=== PATIENT | female | born 1940 | race Caucasian/White ===

== ENCOUNTER 2017-09-20 17:10 | Emergency (ER) | payer OTHER ==
[~2017-09-20] VITALS: Ht 157.5 cm; Wt 74.8 kg
[~2017-09-20 17:10] MED LIST: ASPIR 8181 MG PO; AUGMENTIN 875 M1 TAB PO; LACTULOSE10 GM/15 M PO; MACRODANTIN 50M50 MG PO; MASON NATURAL2000 IU PO; MIRALAX17 GM PO; MULTIVITAMIN1 TAB PO; NORVASC 10MG10 MG PO; OXYCODONE HCL10 MG PO; OXYCONTIN (MONO40 MG PO; PROAIR HFA8.5 GM INH; TAMBOCOR100 MG PO; TOPROL XL25 MG PO; VITAB121000 PO; VITAMIN C1000 M1 PO; VYTORIN 10 MG-11 TAB PO; XANAX0.25 MG PO; ZOFRAN4 M1 PO
--- NOTE | 2017-09-20 20:19 | ED GI/GU/ABDOMINAL COMPLAINT ---
History of Present Illness General Chief Complaint: Abdominal Pain/Flank Pain Stated Complaint: ABD PAIN Source: patient Exam Limitations: no limitations Vital Signs & Intake/Output Vital Signs & Intake/Output Vital Signs Date Time Temp Pulse Resp B/P B/P Pulse O2 O2 Flow FiO2 Mean Ox Delivery Rate 09/209 98.5 80 19 142/70 99 Room Air 09/20 1925 97.5 82 19 158/62 99 Room Air 09/20 1726 97.7 86 18 161/69 97 Room Air Allergies Coded Allergies: NO KNOWN ALLERGIES (11/29/14) Reconcile Medications Albuterol Sulfate (Proair Hfa) 8.5 GM HFA.AER.AD 2 INH INH Q6P PRN WHEEZING Alprazolam (Xanax) 0.25 MG TABLET 1 TAB PO TIDPRN PRN ANXIETY (Reported) Amlodipine (Norvasc 10MG) 10 MG TABLET 1 TAB PO DAILY HYPERTENSION (Reported) AMOXICILLIN/POTASSIUM CLAV (Augmentin 875-125 Tablet) 875 MG/125 MG TAB 1 TAB PO BID INFECTION FOR 7 DAYS (Reported) Ascorbic Acid (Vitamin C) 1,000 MG TAB 1 TAB PO DAILY SUPPLEMENT (Reported) Aspirin (Ecotrin) 81 MG TABLET.DR 1 TAB PO DAILY HEART HEALTH (Reported) CHOLECALCIFEROL (VITAMIN D3) (Vitamin D) 2,000 UNIT CAPSULE 1 CAP PO DAILY SUPPLEMENT (Reported) Cyanocobalamin (Vitamin B-12) 1,000 MCG TABLET 1 TAB PO DAILY SUPPLEMENT ( Reported) Ezetimibe/Simvastatin (Vytorin 10-10 MG Tablet) 10 MG-10 MG TABLET 1 TAB PO DAILY HYPERLIPIDEMIA (Reported) Flecainide Acetate (Tambocor) 100 MG TAB 1 TAB PO BID CARDIAC HEALTH ( Reported) Lactulose 10 GRAM/15 ML SOLUTION 30 ML PO 4 TIMES/DAY PRN CONSTIPATION ( Reported) Metoprolol Succinate (Toprol XL) [address] 0[address]5 TAB PO DAILY HYPERTENSION ( Reported) Multivitamin (Multiple Vitamins) 1 EACH TABLET 1 TAB PO DAILY SUPPLEMENT ( Reported) Nitrofurantoin (Macrodantin 50MG Cap) 50 MG CAPSULE 1 CAP PO DAILY CHRONIC CYSTITIS (Reported) Ondansetron (Zofran Odt) 4 MG TAB.RAPDIS 1 TAB PO Q4-6 PRN NAUSEA Oxycodone HCL (Oxycontin (Monograph Only)) 40 MG TAB.ER.12H 1 TAB PO BID PAIN (Reported) OXYCODONE HCL (Oxycodone HCl) 10 MG TABLET 1 TAB PO Q4-6H PRN PAIN (Reported) Polyethylene Glycol 3350 (Miralax) 17 GRAM/DOSE POWDER 17 GM PO DAILY PRN CONSTIPATION (Reported) mix with water, juice, soda, coffee or tea Triage Note: PT STATES SHE IS GETTING STOMACH PAIN. PT STATES SHE HAD SURGERY AT HER ABD FOR PERFED DUODONEL ULCER. PT DENIES N/V/D. PT STATES THE PAIN "FEELS LIKE GAS" ON AND OFF SINCE LAST TUESDAY Triage Nurses Notes Reviewed? yes ? N Is pt currently ? No Onset: Gradual Duration: day(s):, continues in ED, getting worse Quality/Severity: cramping, sharpness, GASSY HPI: Patient presents for evaluation of a gassy cramping abdominal pain that began . Patient states symptoms have been more or less constant but fluctuating in intensity. Past History Travel History Traveled to [place] past 21 day No Medical History Any Pertinent Medical History? 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 No Review of Systems Review of Systems Constitutional: Reports: no symptoms. EENTM: Reports: no symptoms. Respiratory: Reports: no symptoms. Cardiovascular: Reports: no symptoms. GI: Reports: no symptoms. Genitourinary: Reports: no symptoms. Musculoskeletal: Reports: no symptoms. Skin: Reports: no symptoms. Neurological/Psychological: Reports: no symptoms. Hematologic/Endocrine: Reports: no symptoms. Immunologic/Allergic: Reports: no symptoms. All Other Systems: Reviewed and Negative Physical Exam Physical Exam Gastrointestinal: SEE BELOW Comments: Gen.: Well-nourished, well-developed, no acute respiratory distress. Head: Normocephalic, atraumatic. Eyes: Normal inspection bilaterally Ears: Normal inspection bilaterally Nose: Normal inspection Throat/mouth : Moist mucosa Neck: Supple, full range of motion, no goiter Heart: Regular rate and rhythm, no murmurs rubs or gallops Lungs: Clear to auscultation bilaterally with normal air entry Chest: Nontender Back: Normal range of motion Abdomen: Soft, diffuse tenderness with brief voluntary guarding but no rebound, nondistended, normal bowel sounds Extremities: Normal range of motion grossly, equal radial pulses, no cyanosis clubbing or edema Neurologic: Cranial nerves grossly intact, speech is clear Skin: warm and dry Psychiatric: Calm, cooperative, no apparent delusions or hallucinations Rectal: Minimal stool in vault, heme negative, no palpable masses Core Measures ACS in differential dx? No Sepsis Present: No Sepsis Focused Exam Completed? No Progress Differential Diagnosis: bowel obstruction, diverticulitis, gastritis, ischemic bowel, inflamm bowel dis, pancreatitis, peptic ulcer, bowel obstruction, diverticulitis, constipation, obstipation, fecal impaction, Stercocolitis Plan of Care: Orders Procedure Date/time Status URINALYSIS 09/20 2023 Complete LIPASE 09/20 2023 Complete COMPREHENSIVE METABOLIC PANEL 09/20 2023 Complete CBC WITHOUT DIFFERENTIAL 09/20 2023 Complete Laboratory Tests 09/20/172049: Urine Color YEL, Urine Clarity CLEAR, Urine pH 6.0, Ur Specific [place] 1.015, Urine Protein NEG, Urine Ketones NEG, Urine Nitrite NEG, Urine Bilirubin NEG, Urine Urobilinogen 0.2, Ur Leukocyte Esterase TRACE H, Ur Microscopic SEDIMENT EXAMINED, Urine RBC RARE, Urine WBC 1-3 H, Ur Epithelial Cells RARE, Urine Bacteria FEW H, Urine Mucus RARE, Urine Hemoglobin NEG, Urine Glucose NEG 09/20/172044: Anion Gap 14, Estimated GFR > 60, BUN/Creatinine Ratio 35.0 H, Glucose 94, Calcium 9.7, Total Bilirubin 0.2, AST 28, ALT 49, Alkaline Phosphatase 86, Total Protein 7.6, Albumin 4.1, Globulin 3.5, Albumin/Globulin Ratio 1.2, Lipase 33, CBC w Diff NO MAN DIFF REQ, RBC 3.72 L, MCV 80.8 L, MCH 26.2 L, RDW 14.4, MPV 7.7, Gran % 54.7, Lymphocytes % 36.0, Monocytes % 7.6, Eosinophils % 1.5, Basophils % 0.2, Absolute Granulocytes 5.4, Absolute Lymphocytes 3.6 H, Absolute Monocytes 0.7 H, Absolute Eosinophils 0.1, Absolute Basophils 0, PUBS MCHC 32.4 L Diagnostic Imaging: Discussed w/RAD: CT Scan. Radiology Impression: PATIENT: KANG PATHAK PRESENT AGE: 77 PATIENT ACCOUNT NO: [id number] : 38 LOCATION: [facility] ORDERING PHYSICIAN: Edinson Almonte MD SERVICE DATE: 09/20/17 EXAM TYPE: CAT - CT ABD & PELVIS W IV CONTRAST EXAMINATION: CT ABDOMEN AND PELVIS WITH CONTRAST CLINICAL INFORMATION: Prior duodenal ulcer surgery. Abdominal pain and distention. COMPARISON: 11/29/2014 TECHNIQUE: Multidetector volumetric imaging was performed of the abdomen and pelvis following IV administration of 95 mL of Optiray 320 intravenous contrast. Sagittal and coronal reformatted images were obtained on the technologist's workstation. DLP: 396 mGy-cm FINDINGS: LUNG BASES : The visualized lung bases are unremarkable. LIVER, GALLBLADDER, AND BILIARY TREE: Unchanged 1.9 cm cyst in the liver. Again seen is mild to moderate intrahepatic biliary ductal dilatation. The common bile duct is dilated to 1.3 cm. The portal vein enhances normally. Gallbladder moderately distended. No gallbladder wall thickening or pericholecystic fluid. PANCREAS: The pancreas is atrophic. The pancreatic duct is borderline dilated and irregular. No peripancreatic fluid or inflammatory changes. SPLEEN: Normal size. No focal lesion. ADRENAL GLANDS: No adrenal mass. KIDNEYS AND URETERS: Symmetric bilateral renal enhancement. Right upper pole renal cortical cyst. There are extrarenal pelvises bilaterally. No hydronephrosis or mass. BLADDER: Unremarkable. GASTROINTESTINAL TRACT: Stomach is collapsed. Small bowel is nondilated. There is a large volume of stool throughout the tortuous colon. Constipation is possible. No wall thickening to suggest colitis or diverticulitis however. ABDOMINAL WALL: No significant hernia is appreciated. LYMPH NODES: Normal. VASCULAR: Unremarkable. PELVIC VISCERA: The uterus is not seen, either diminutive or absent. OSSEOUS STRUCTURES: Multilevel posterior spinal fusion and laminectomy is seen there is extensive posterior lateral bone graft material. Streak artifact limits evaluation. IMPRESSION: No definite acute abnormality to explain the patient's abdominal pain. No evidence of small bowel obstruction. There is a large volume of stool throughout the tortuous colon. Constipation is possible. No focal evidence of colitis or diverticulitis. The common bile duct is dilated to 1.3 cm with mild to moderate intrahepatic biliary ductal dilatation, similar to prior study. DICTATED BY: Daniel Bailey MD DATE /TIME DICTATED:09/20/172212 AGENT:LORETTA DATE/TIME TRANSCRIBED: 09/20/172212 CONFIDENTIAL, DO NOT COPY WITHOUT APPROPRIATE AUTHORIZATION. < Electronically signed in Other Vendor System> SIGNED BY: Daniel Bailey MD 09/20/172223 Initial ED EKG: none Departure Departure Disposition: HOME OR SELF CARE Condition: Stable Clinical Impression Primary Impression: Constipation Qualifiers: Constipation type: slow transit constipation Qualified Code: K59.01 - Slow transit constipation Referrals: Brittney ANGULO,Mati Lechuga (PCP/Family) Additional Instructions: Maintained a good fluid intake. Try Ex-Lax And magnesium citrate. Follow-up with your primary care physician if no improvement over the next 48-72 hours. Return if any concerns or sudden worsening. Please note that there might be incidental findings in your evaluation that are unrelated to the current emergency department visit. Please notify your primary care doctor about this emergency department visit in order to obtain and review all of the testing performed so that these incidental findings can be monitored as needed. If you had an x-ray performed, please understand that some fractures may not be seen on the initial set of x-rays. If your symptoms persist you might need a repeat set of x-rays to check for such a fracture. If you had a laceration evaluated, please understand that foreign bodies such as glass or wood may not be visible to the naked eye or on plain x-rays. If the wound becomes red, swollen, increasingly more painful or if there is any drainage from the wound, please have it reevaluated by a physician for the possibility of a retained foreign body. If you're unable to follow up as outlined in the discharge instructions please return to the emergency department. Thank you for choosing the [facility] Emergency Department for your care. It was a pleasure to serve you today. Edinson Almonte M.D. [facility] Departure Forms: Customer Survey General Discharge Information
[2017-09-20 21:02] LABS: ABSOLUTE BASOPHIL COUNT 0 /CUMM (0.0-0.2); ABSOLUTE EOSINOPHIL COUNT 0.1 /CUMM (0.0-0.7); ABSOLUTE GRANULOCYTE CT 5.4 /CUMM (1.4-6.5); ABSOLUTE LYMPH COUNT 3.6 /CUMM (1.2-3.4); ABSOLUTE MONOCYTE COUNT 0.7 /CUMM (0.10-0.60); BASOPHIL % 0.2 % (0.0-2.0); EOSINOPHIL % 1.5 % (0-5); GRANULOCYTE % 54.7 % (42.2-75.2); HEMATOCRIT 30.1 % (37-47); MEAN CORPUSCULAR HGB 26.2 PG (27.0-31.0); MEAN CORPUSCULAR HGB CONC 32.4 G/DL (33.0-37.0); MEAN CORPUSCULAR VOLUME 80.8 FL (81.0-99.0); MEAN PLATELET VOLUME 7.7 FL (7.4-10.4); PLATELET COUNT 340 /CUMM (130-400); RBC DISTRIBUTION WIDTH 14.4 % (11.5-14.5); RED BLOOD CELL CT 3.72 /CUMM (4.20-5.40); WHITE BLOOD CELL COUNT 9.9 /CUMM (4.8-10.8)
--- NOTE | 2017-09-20 22:24 | CT SCAN REPORT ---
EXAMINATION: CT ABDOMEN AND PELVIS WITH CONTRAST CLINICAL INFORMATION: Prior duodenal ulcer surgery. Abdominal pain and distention. COMPARISON: 11/29/2014 TECHNIQUE: Multidetector volumetric imaging was performed of the abdomen and pelvis following IV administration of 95 mL of Optiray 320 intravenous contrast. Sagittal and coronal reformatted images were obtained on the technologist's workstation. DLP: 396 mGy-cm FINDINGS: LUNG BASES: The visualized lung bases are unremarkable. LIVER, GALLBLADDER, AND BILIARY TREE: Unchanged 1.9 cm cyst in the liver. Again seen is mild to moderate intrahepatic biliary ductal dilatation. The common bile duct is dilated to 1.3 cm. The portal vein enhances normally. Gallbladder moderately distended. No gallbladder wall thickening or pericholecystic fluid. PANCREAS: The pancreas is atrophic. The pancreatic duct is borderline dilated and irregular. No peripancreatic fluid or inflammatory changes. SPLEEN: Normal size. No focal lesion. ADRENAL GLANDS: No adrenal mass. KIDNEYS AND URETERS: Symmetric bilateral renal enhancement. Right upper pole renal cortical cyst. There are extrarenal pelvises bilaterally. No hydronephrosis or mass. BLADDER: Unremarkable. GASTROINTESTINAL TRACT: Stomach is collapsed. Small bowel is nondilated. There is a large volume of stool throughout the tortuous colon. Constipation is possible. No wall thickening to suggest colitis or diverticulitis however. ABDOMINAL WALL: No significant hernia is appreciated. LYMPH NODES: Normal. VASCULAR: Unremarkable. PELVIC VISCERA: The uterus is not seen, either diminutive or absent. OSSEOUS STRUCTURES: Multilevel posterior spinal fusion and laminectomy is seen there is extensive posterior lateral bone graft material. Streak artifact limits evaluation. IMPRESSION: No definite acute abnormality to explain the patient's abdominal pain. No evidence of small bowel obstruction. There is a large volume of stool throughout the tortuous colon. Constipation is possible. No focal evidence of colitis or diverticulitis. The common bile duct is dilated to 1.3 cm with mild to moderate intrahepatic biliary ductal dilatation, similar to prior study.
[2017-09-20 23:35] VITALS: BP 140/70
== END 2017-09-20 23:51 ==
LOC: ERH 17:10
PROVIDERS: Emergency Medicine
DX: K59.00 Constipation, unspecified (principal)
CPT/HCPCS: 74177; 81001; 96374; J0131

== ENCOUNTER 2018-01-15 18:23 | Emergency (ER) | payer OTHER ==
[~2018-01-15] VITALS: Ht 157.5 cm; Wt 70.8 kg
--- NOTE | 2018-01-15 18:39 | ED GI/GU/ABDOMINAL COMPLAINT ---
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 DENIES N/V AND DENIES RECENT BLACK OR BLOOD STOOLS. CHRONIC OXYCONTIN USE WITH HX CONSTIPATION. DENIES FEVERS/CHILLS. BS NORMAL, HYPERACTIVE TO LLQ. REPORTS DECREASED FLATUENCE TODAY. LAST BM YESTERDAY AND HARD. ABDOMEN SOFT, NO RIGIDITY NOTED. DENIES CP, HAS OCCASSIONAL PALPITATIONS NONE AT PRESENT. DENIES SOB. PT SEEN IN TRIAGE BY DR MCFADDEN AND EVALUATED. PT IMMEDIATELY TO XRAY AND PLAN TO GO DIRECTLY TO ROOM 7 AFTER Triage Nurses Notes Reviewed? yes HPI: 77F PMH paroxysmal atrial fibrillation on Flecainide, chronic lower back pain with multiple surgeries on Oxycontin and Oxycodone, history of duodenal perforation in July s/p repair, presents with acute onset of 10/10 diffuse abdominal pain for one day, non-radiating, not related to position or food. She reports that it feels like when she perforated. She denies fever, chills, lightheadedness, sore throat, chest pain, SOB, diarrhea, dysuria. Last BM last night, has chronic constipation with hard BMs. No bloody stools. NO history of trauma. (Arsenio ANGULO,[facility]) Reconcile Medications Albuterol Sulfate (Proair Hfa) 8.5 GM HFA.AER.AD 2 INH INH Q6P PRN WHEEZING Alprazolam (Xanax) 0.25 MG TABLET 1 TAB PO TIDPRN PRN ANXIETY (Reported) Amlodipine (Norvasc 10MG) 10 MG TABLET 1 TAB PO DAILY HYPERTENSION (Reported) AMOXICILLIN/POTASSIUM CLAV (Augmentin 875-125 Tablet) 875 MG/125 MG TAB 1 TAB PO BID INFECTION FOR 7 DAYS (Reported) Ascorbic Acid (Vitamin C) 1,000 MG TAB 1 TAB PO DAILY SUPPLEMENT (Reported) Aspirin (Ecotrin) 81 MG TABLET.DR 1 TAB PO DAILY HEART HEALTH (Reported) CHOLECALCIFEROL (VITAMIN D3) (Vitamin D) 2,000 UNIT CAPSULE 1 CAP PO DAILY SUPPLEMENT (Reported) Cyanocobalamin (Vitamin B-12) 1,000 MCG TABLET 1 TAB PO DAILY SUPPLEMENT ( Reported) Ezetimibe/Simvastatin (Vytorin 10-10 MG Tablet) 10 MG-10 MG TABLET 1 TAB PO DAILY HYPERLIPIDEMIA (Reported) Flecainide Acetate (Tambocor) 100 MG TAB 1 TAB PO BID CARDIAC HEALTH ( Reported) Lactulose 10 GRAM/15 ML SOLUTION 30 ML PO 4 TIMES/DAY PRN CONSTIPATION ( Reported) Metoprolol Succinate (Toprol XL) [address] 0[address]5 TAB PO DAILY HYPERTENSION ( Reported) Multivitamin (Multiple Vitamins) 1 EACH TABLET 1 TAB PO DAILY SUPPLEMENT ( Reported) Nitrofurantoin (Macrodantin 50MG Cap) 50 MG CAPSULE 1 CAP PO DAILY CHRONIC CYSTITIS (Reported) Ondansetron (Zofran Odt) 4 MG TAB.RAPDIS 1 TAB PO Q4-6 PRN NAUSEA Oxycodone HCL (Oxycontin (Monograph Only)) 40 MG TAB.ER.12H 1 TAB PO BID PAIN (Reported) OXYCODONE HCL (Oxycodone HCl) 10 MG TABLET 1 TAB PO Q4-6H PRN PAIN (Reported) Peg 3350/Na Sulf,Bicarb,Cl/KCl (Golytely Solution) 236-22.74G SOLN.RECON 1 GAL PO X1 CONSTIPATION Polyethylene Glycol 3350 (Miralax) 17 GRAM/DOSE POWDER 17 GM PO DAILY PRN CONSTIPATION (Reported) mix with water, juice, soda, coffee or tea ? n Is pt currently ? No (Howard ANGULO,Paolo Nugent) Past History Travel History Traveled to [place] past 21 day No Medical History Any Pertinent Medical History? 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 No (Noemi Mcfadden MD) Review of Systems Review of Systems Constitutional: Reports: no symptoms. EENTM: Reports: no symptoms. Respiratory: Reports: no symptoms. Cardiovascular: Reports: no symptoms. GI: Reports: no symptoms. Genitourinary: Reports: no symptoms. Musculoskeletal: Reports: no symptoms. Skin: Reports: no symptoms. Neurological/Psychological: Reports: no symptoms. Hematologic/Endocrine: Reports: no symptoms. Immunologic/Allergic: Reports: no symptoms. All Other Systems: Reviewed and Negative (Noemi Mcfadden MD) Physical Exam Physical Exam General Appearance: well developed/nourished, no apparent distress Head: atraumatic, normal appearance Eyes: Bilateral: normal appearance. Ears, Nose, Throat, Mouth: hearing grossly normal, moist mucous membrane Neck: normal inspection, full range of motion Respiratory: normal breath sounds, no respiratory distress Cardiovascular: regular rate/rhythm Gastrointestinal: DIFFUSE TENDERNESS, NO REBOUND OR GUARDING Back: normal inspection, normal range of motion Extremities: normal range of motion Neurologic/Psych: awake, alert, oriented x 3, normal mood/affect Skin: intact, normal color, warm/dry Core Measures ACS in differential dx? No Sepsis Present: No Sepsis Focused Exam Completed? No (Noemi Mcfadden MD) Progress Differential Diagnosis: AAA, AMI, appendicitis, biliary colic, bowel obstruction , colon cancer, cholecystitis, diverticulitis, ectopic , endometritis, esophageal varices, gastritis, hepatitis, hernia, hemorrhoids, ischemic bowel, inflamm bowel dis, intrauterine , kidney stone, Marlin-Abhishek tear, ovarian cyst, ovarian torsion, pancreatitis, PID/cervicitis, peptic ulcer, PUD/ GERD, perforated viscous, SBO, threatened AB, UTI/pyelo Plan of Care: Orders Procedure Date/time Status CREATINE PHOSPHOKINASE 01/15 1912 Complete LACTIC ACID 01/15 1842 Complete URINALYSIS 01/15 1833 Complete LIPASE 01/15 1833 Complete COMPREHENSIVE METABOLIC PANEL 01/15 1833 Complete CBC WITHOUT DIFFERENTIAL 01/15 183 Complete EKG 01/15 1833 Active Current Medications Sig/Catia Start time Last Medication Dose Stop Time Status Admin Morphine Sulfate 4 MG ONCE ONE 01/15 2115 UNVr 01/15 (Morphine) 01/15 Laboratory Tests 01/15/182043: Urine Color STRAW, Urine Clarity CLEAR, Urine pH 7.0, Ur Specific [place] 1.010, Urine Protein NEG, Urine Ketones NEG, Urine Nitrite NEG, Urine Bilirubin NEG, Urine Urobilinogen 0.2, Ur Leukocyte Esterase SMALL H, Ur Microscopic SEDIMENT EXAMINED, Urine WBC RARE, Urine Hemoglobin NEG, Urine Glucose NEG 01/15/181911: Lactic Acid 1.3 01/15/181911: Anion Gap 10, Estimated GFR > 60, BUN/Creatinine Ratio 25.0, Glucose 122 H, Calcium 9.4, Total Bilirubin 0.4, AST 22, ALT 27, Alkaline Phosphatase 75, Creatine Kinase 56, Total Protein 7.3, Albumin 4.2, Globulin 3.1, Albumin/ Globulin Ratio 1.4, Lipase 25, CBC w Diff NO MAN DIFF REQ, RBC 4.12 L, MCV 79.8 L, MCH 25.3 L, MCHC 31.7 L, RDW 15.4 H, MPV 7.5, Gran % 52.7, Lymphocytes % 38.8, Monocytes % 6.9, Eosinophils % 1.3, Basophils % 0.3, Absolute Granulocytes 4.6, Absolute Lymphocytes 3.4, Absolute Monocytes 0.6, Absolute Eosinophils 0.1, Absolute Basophils 0 Initial ED EKG: NSR, no ST T wave changes (Arsenio ANGULO,Noemi) Diagnostic Imaging: Viewed by Me: CT Scan. Discussed w/RAD: CT Scan. Radiology Impression: PATIENT: KANG PATHAK PRESENT AGE: 77 PATIENT ACCOUNT NO: [id number] : 38 LOCATION: [facility] ORDERING PHYSICIAN: Noemi Mcfadden MD SERVICE DATE: 01/15/18 EXAM TYPE: CAT - CT ABD & PELVIS W IV CONTRAST EXAMINATION: CT ABDOMEN AND PELVIS WITH CONTRAST CLINICAL INFORMATION: Severe diffuse abdominal pain. History of duodenal perforation. COMPARISON: CT abdomen 12/02/2017. TECHNIQUE: Multidetector volumetric imaging was performed of the abdomen and pelvis following IV administration of 100 mL of Omnipaque 300 intravenous contrast. Sagittal and coronal reformatted images were obtained on the technologist's workstation. DLP: 511 mGy-cm FINDINGS: LUNG BASES: Minimal subsegmental atelectasis in the bilateral lower lungs. No pleural effusion. LIVER, GALLBLADDER, AND BILIARY TREE : Redemonstration of a 1.8 cm cyst within segment 8. No new hepatic lesion. Borderline intra and extra hepatic biliary ductal prominence common with the common bile duct measuring up to 0.8 cm. No choledocholithiasis. The gallbladder is unremarkable. PANCREAS: Unremarkable. SPLEEN: Unremarkable. ADRENAL GLANDS: Unremarkable. KIDNEYS AND URETERS: Bilateral nephrograms are symmetric without hydronephrosis. Suspect bilateral renal vascular calcifications. No obstructing renal or ureteral calculus. No suspicious renal mass. BLADDER: Unremarkable. GASTROINTESTINAL TRACT: Bowel gas pattern is nonobstructive. There is colonic diverticulosis without evidence of diverticulitis. Small to moderate volume of stool throughout the colon. The appendix is unremarkable. Suspect a duodenal diverticulum. No acute duodenal pathology demonstrated. ABDOMINAL WALL: Postsurgical changes of the ventral abdominal wall. No focal hernia. LYMPH NODES : No bulky adenopathy. VASCULAR: Scattered atherosclerotic calcification including coronary artery calcification. PELVIC VISCERA: No free pelvic fluid. No suspicious uterine or adnexal lesion. OSSEOUS STRUCTURES: No acute osseous abnormalities. Lumbosacral fusion hardware without evidence of hardware complication. Subtle focal kyphosis at L1-L2. Multilevel degenerative changes of the spine. IMPRESSION: 1. Small to moderate volume of stool throughout the colon. No acute bowel pathology demonstrated. 2. No pneumoperitoneum or ascites. 3. Diverticulosis without evidence of diverticulitis. 4. Top normal caliber of the biliary ductal system. 5. Other nonacute findings as described above. DICTATED BY: Danny Espinal MD DATE/TIME DICTATED:01/15/182045 APPARATUS ENGINEERING TECHNOLOGIST:LORETTA DATE/TIME TRANSCRIBED:01/15/182045 CONFIDENTIAL, DO NOT COPY WITHOUT APPROPRIATE AUTHORIZATION. <Electronically signed in Other Vendor System> SIGNED BY: Danny Espinal MD 01/15/18 2100 (Howard ANGULO,Paolo Nugent) Departure Departure Condition: Stable Referrals: Brittney ANGULO,Mati Lechuga (PCP/Family) Departure Forms: Customer Survey General Discharge Information (Arsenio ANGULO,Noemi) Departure Disposition: HOME OR SELF CARE Clinical Impression Primary Impression: Constipation Secondary Impressions: Abdominal pain Prescriptions: Current Visit Scripts Peg 3350/Na Sulf,Bicarb,Cl/KCl (Golytely Solution) 1 GAL PO X1 #1 GAL Comments 01/15/18, 21:24... pt stable in ED... mild distension with minimal diffuse tenderness to palpation, +BS, no rebound... ct scan consistent with constipation , no sign of inflammation or ileus/sbo. pt safe for discharge... sent rx for golytely... encouraged close follow up with GI. (Howard ANGULO,Paolo Nugent)
--- NOTE | 2018-01-15 19:12 | RADIOLOGY REPORT ---
EXAMINATION: XR ABDOMEN MULTIPLE VIEWS CLINICAL INDICATION: Acute severe pain. History of duodenal perforation 6 months ago COMPARISON: CT 12/02/2017 TECHNIQUE: 2 views of the abdomen. FINDINGS: There is extensive lower lumbar fusion hardware and evidence of posterior decompression. There is gas throughout the stomach, small bowel, and colon. No pneumoperitoneum seen on upright views. There is an air-fluid level in the right colon. There is stool throughout the right colon is well. IMPRESSION: No gross pneumoperitoneum seen. There is gas throughout the stomach, small bowel, and colon; an ileus could have this appearance. There is a fluid level in the right abdomen likely within the right colon, nonspecific. Consider CT scan for further evaluation as clinically indicated.
[2018-01-15 19:30] LABS: ABSOLUTE BASOPHIL COUNT 0 /CUMM (0.0-0.2); ABSOLUTE EOSINOPHIL COUNT 0.1 /CUMM (0.0-0.7); ABSOLUTE GRANULOCYTE CT 4.6 /CUMM (1.4-6.5); ABSOLUTE LYMPH COUNT 3.4 /CUMM (1.2-3.4); ABSOLUTE MONOCYTE COUNT 0.6 /CUMM (0.10-0.60); BASOPHIL % 0.3 % (0.0-2.0); EOSINOPHIL % 1.3 % (0-5); GRANULOCYTE % 52.7 % (42.2-75.2); HEMATOCRIT 32.9 % (37-47); MEAN CORPUSCULAR HGB 25.3 PG (27.0-31.0); MEAN CORPUSCULAR HGB CONC 31.7 G/DL (33.0-37.0); MEAN CORPUSCULAR VOLUME 79.8 FL (81.0-99.0); MEAN PLATELET VOLUME 7.5 FL (7.4-10.4); PLATELET COUNT 339 /CUMM (130-400); RBC DISTRIBUTION WIDTH 15.4 % (11.5-14.5); RED BLOOD CELL CT 4.12 /CUMM (4.20-5.40); WHITE BLOOD CELL COUNT 8.8 /CUMM (4.8-10.8)
[2018-01-15 19:50] VITALS: BP 175/77
--- NOTE | 2018-01-15 21:00 | CT SCAN REPORT ---
EXAMINATION: CT ABDOMEN AND PELVIS WITH CONTRAST CLINICAL INFORMATION: Severe diffuse abdominal pain. History of duodenal perforation. COMPARISON: CT abdomen 12/02/2017. TECHNIQUE: Multidetector volumetric imaging was performed of the abdomen and pelvis following IV administration of 100 mL of Omnipaque 300 intravenous contrast. Sagittal and coronal reformatted images were obtained on the technologist's workstation. DLP: 511 mGy-cm FINDINGS: LUNG BASES: Minimal subsegmental atelectasis in the bilateral lower lungs. No pleural effusion. LIVER, GALLBLADDER, AND BILIARY TREE: Redemonstration of a 1.8 cm cyst within segment 8. No new hepatic lesion. Borderline intra and extra hepatic biliary ductal prominence common with the common bile duct measuring up to 0.8 cm. No choledocholithiasis. The gallbladder is unremarkable. PANCREAS: Unremarkable. SPLEEN: Unremarkable. ADRENAL GLANDS: Unremarkable. KIDNEYS AND URETERS: Bilateral nephrograms are symmetric without hydronephrosis. Suspect bilateral renal vascular calcifications. No obstructing renal or ureteral calculus. No suspicious renal mass. BLADDER: Unremarkable. GASTROINTESTINAL TRACT: Bowel gas pattern is nonobstructive. There is colonic diverticulosis without evidence of diverticulitis. Small to moderate volume of stool throughout the colon. The appendix is unremarkable. Suspect a duodenal diverticulum. No acute duodenal pathology demonstrated. ABDOMINAL WALL: Postsurgical changes of the ventral abdominal wall. No focal hernia. LYMPH NODES: No bulky adenopathy. VASCULAR: Scattered atherosclerotic calcification including coronary artery calcification. PELVIC VISCERA: No free pelvic fluid. No suspicious uterine or adnexal lesion. OSSEOUS STRUCTURES: No acute osseous abnormalities. Lumbosacral fusion hardware without evidence of hardware complication. Subtle focal kyphosis at L1-L2. Multilevel degenerative changes of the spine. IMPRESSION: 1. Small to moderate volume of stool throughout the colon. No acute bowel pathology demonstrated. 2. No pneumoperitoneum or ascites. 3. Diverticulosis without evidence of diverticulitis. 4. Top normal caliber of the biliary ductal system. 5. Other nonacute findings as described above.
[2018-01-15] MEDS ORDERED: GOLYTELY SOLU4000 ML PO (21:22)
== END 2018-01-15 21:42 ==
LOC: ERH 18:23
PROVIDERS: Internal Medicine
DX: K59.00 Constipation, unspecified (principal); R10.9 Unspecified abdominal pain; I10 Essential (primary) hypertension
CPT/HCPCS: 74021; 74177; 81001; 93005; 93010; 96374; 96375; 96376